=== PATIENT | male | born 1965 | race Caucasian/White ===

== ENCOUNTER 2020-05-26 10:00 | Outpatient (CLI) | payer OTHER ==
[~2020-05-26] VITALS: Ht 191 cm; Wt 100.0 kg
[2020-05-26] MEDS ORDERED: TMSL.4C PO (11:11)
[2020-05-26] MEDS ORDERED: MELO7.5T46 PO (11:11)
== END 2020-05-26 11:43 ==
LOC: PREOP 10:00
PROVIDERS: ATTEND Surgery
DX: Z01.818 Encounter for other preprocedural examination (principal)

== ENCOUNTER 2020-05-31 10:12 | Day surgery (SDC) | payer OTHER ==
[~2020-05-31] VITALS: Ht 191 cm; Wt 100.0 kg
[~2020-05-31 10:12] MED LIST: MELO7.5T46 PO; TMSL.4C PO
[2020-05-31 10:16] VITALS: BP 156/99
[2020-05-31] MEDS ORDERED: LACTATED RINGERS 1,000 ML IV STA (10:21)
[2020-05-31] MEDS ORDERED: LACTATED RINGERS 1,000 ML IV ONE (10:21)
--- NOTE | 2020-05-31 11:38 | Progress Note-Pre Operative ---
Pre-Operative Progress Note H&P Reviewed The H&P was reviewed, patient examined and no changes noted. Date Seen by Provider: May 31, 2020 Time Seen by Provider: 11:38 Date H&P Reviewed: May 31, 2020 Time H&P Reviewed: 11:38 Pre-Operative Diagnosis: + fit test GEOVANNI KRAMER DO May 31, 2020 11:38
[2020-05-31] MEDS ORDERED: PROPOFOL INJECTION 50 ML IV ONE (12:14)
[2020-05-31] MEDS ORDERED: MIDAZOLAM 2 MG/2 ML (VERSED) VIAL ONE (12:14)
[2020-05-31] MEDS ORDERED: proPOfol 200 MG/20 ML (DIPRIVAN) VIAL IV ONE (12:36)
[2020-05-31 12:50] VITALS: BP 121/77
[2020-05-31 12:55] VITALS: BP 117/74
--- NOTE | 2020-05-31 12:56 | Progress Note-Post Operative ---
Post-Operative Progess Note Surgeon (s)/Insights Analyst (s) Surgeon GEOVANNI KRAMER DO Insights Analyst: na Pre-Operative Diagnosis + fit test Post-Operative Diagnosis diverticulosis Procedure & Operative Findings Date of Procedure 05/31/20 Procedure Performed/Findings colonoscopy Anesthesia Type per [facility] Estimated Blood Loss Estimated blood loss (mL): none Specimens/Packing Specimens Removed none GEOVANNI KRAMER DO May 31, 2020 12:56
--- NOTE | 2020-05-31 12:58 | Discharge Inst-Simple/Standard ---
Discharge Inst-Standard Discharge Medications New, Converted or Re-Newed RX: RX on Chart Patient Instructions/Follow Up Plan of Care/Instructions/FU: follow up as needed. Repeat colonosocpy 10 year unless family history of colon cancer and would then be 5 years. Any issues before that be seen at that time. Activity as Tolerated: Yes Discharge Diet: Regular Diet (high fiber) GEOVANNI KRAMER DO May 31, 2020 12:58
[2020-05-31 13:00] VITALS: BP 125/79
[2020-05-31 13:15] VITALS: BP 130/100
--- NOTE | 2020-05-31 13:22 | Anesthesia-General Post-Op ---
MAC Patient Condition Mental Status/LOC: Same as Preop Cardiovascular: Satisfactory Nausea/Vomiting: Absent Respiratory: Satisfactory Pain: Controlled Complications: Absent Post Op Complications Complications None Follow Up Care/Instructions Patient Instructions None needed. Anesthesiology Discharge Order Discharge Order Patient is doing well, no complaints, stable vital signs, no apparent adverse anesthesia problems. No complications reported per nursing. MAGGI DIAZ CRNA May 31, 2020 13:22
[2020-05-31 13:25] VITALS: BP 130/100
--- NOTE | 2020-05-31 14:38 | OPERATIVE REPORT ---
DATE OF SERVICE: 05/31/2020 PREOPERATIVE DIAGNOSIS: Positive FIT test. POSTOPERATIVE DIAGNOSIS: Diverticulosis. PROCEDURE: Colonoscopy. SURGEON: Geovanni Anne DO ANESTHESIA: Per MDA. ESTIMATED BLOOD LOSS: None. COMPLICATIONS: None. INDICATIONS: The patient is a 55-year-old male with history of positive FIT test. He understands risks and benefits of procedure and wished to proceed with procedure. Consent was signed in the chart. DESCRIPTION OF PROCEDURE: The patient was taken to the endoscopy suite, placed in left lateral recumbent position. Timeout was performed. Digital rectal exam was performed. There were no palpable polyps, masses or ulcerations. Scope was inserted in the rectum and advanced all the way to cecum with minimal difficulty. Prep was adequate. Scope was then slowly retracted back. There were no polyps, masses or ulcerations within the cecum, ascending, transverse, descending and sigmoid colon. In the sigmoid colon, mild to moderate amount of diverticulosis present. Once in the rectum, scope was retroflexed noting no other pathology. Scope was returned to its normal position, slowly withdrawn until completely removed. The patient tolerated procedure well without any complications. He was taken to recovery room in stable condition. RECOMMENDATIONS: The patient will need repeat colonoscopy in 10 years unless family history of colon cancer, which will then be 5 years. Any changes prior to that, he should be reevaluated at that time. Job ID: [id number] DocumentID: [id number] Dictated Date: 05/31/2020 13:01:02 Numerical Control Router Operator Date: 05/31/2020 14:37:24 Dictated By: GEOVANNI ANNE DO
== END 2020-05-31 13:25 | disposition home or self-care (01) ==
LOC: ENDO 10:12
PROVIDERS: ATTEND Surgery
DX: K57.30 Diverticulosis of large intestine without perforation or abscess without bleeding (principal); M06.9 Rheumatoid arthritis, unspecified; Z79.899 Other long term (current) drug therapy
CPT/HCPCS: 82962